=== PATIENT | female | born 1935 | race Caucasian/White ===

== ENCOUNTER 2024-10-16 17:27 | Emergency (ER) | payer MEDICARE, OTHER ==
[~2024-10-16] VITALS: Ht 160 cm; Wt 72.6 kg
[2024-10-16 18:05] VITALS: RESP 17; TEMP 98.4
[2024-10-16 19:21] LABS: BILIRUBIN,URINE NEGATIVE (NEGATIVE); CLARITY,URINE HAZY (CLEAR); COLOR,URINE YELLOW (YELLOW); GLUCOSE, URINE NEGATIVE (NEGATIVE); KETONES,URINE NEGATIVE (NEGATIVE); LEUKOCYTE ESTERASE ,URINE MODERATE (NEGATIVE); NITRITE,URINE NEGATIVE (NEGATIVE); PH,URINE 6 (5 - 7); PROTEIN,URINE DIPSTICK 1+ (NEGATIVE); URINE UROBILINOGEN 0.2 mg/dL (0.2 - 1)
[2024-10-16 19:23] LABS: BACTERIA,URINE MANY /HPF; EPITHELIAL CELLS,URINE MANY /LPF; WBC,URINE (MAN) >50 /HPF (0-5)
[2024-10-16 20:00] VITALS: PULSE 64
[2024-10-16] MEDS: CLONIDINE HCL 0.3MG/24 HR PATCH TOP STA (20:31)
[2024-10-16] MEDS ORDERED: BACTRIM DS TAB1 EACH PO (20:39)
[2024-10-16 21:45] VITALS: BP 169/73; O2SAT 97
== END 2024-10-16 21:00 | disposition home or self-care (01) ==
LOC: ER 17:41
DX: S00.83XA Contusion of other part of head, initial encounter (principal); R51.9 Headache, unspecified; M25.551 Pain in right hip; W01.0XXA Fall on same level from slipping, tripping and stumbling without subsequent striking against object, initial encounter; Y93.01 Activity, walking, marching and hiking; Y92.89 Other specified places as the place of occurrence of the external cause; R30.0 Dysuria; R33.9 Retention of urine, unspecified; N39.0 Urinary tract infection, site not specified; I10 Essential (primary) hypertension; E11.9 Type 2 diabetes mellitus without complications; E78.5 Hyperlipidemia, unspecified; K21.9 Gastro-esophageal reflux disease without esophagitis
CPT/HCPCS: 70450; 74176; 81001; 99284